=== PATIENT | female | born 2000 | race Two or more races ===

== ENCOUNTER 2023-07-25 01:15 | Inpatient (IN) ==
[2023-07-25] MEDS ORDERED: D5 1/2 NS 1,000 ML 1,000 ML IV ONE (01:31)
[2023-07-25 01:39] VITALS: BMI 28.5
[2023-07-25] MEDS ORDERED: D5 1/2 NS 1,000 ML 1,000 ML IV SCH ×2 (02:00→04:00)
[2023-07-25 02:05] LABS: BILIRUBIN,URINE NEGATIVE (NEGATIVE); BLOOD/HEMOGLOBIN,URINE NEGATIVE (NEGATIVE); GLUCOSE, URINE NEGATIVE (NEGATIVE); KETONES,URINE NEGATIVE (NEGATIVE); LEUKOCYTE ESTERASE ,URINE 1+ (NEGATIVE); NITRITES,URINE NEGATIVE (NEGATIVE); PROTEIN,URINE NEGATIVE (NEGATIVE); UROBILINOGEN,URINE NORMAL (NORMAL)
[2023-07-25 02:12] LABS: APPEARANCE,URINE CLEAR (CLEAR); COLOR,URINE STRAW (YELLOW)
[2023-07-25 02:13] LABS: BACTERIA,URINE TRACE /HPF (NEGATIVE); RBC,URINE 0-2 /HPF (0-3); SQUAMOUS EPITHELIAL CELL,UR RARE /HPF (NEGATIVE)
[2023-07-25 02:16] LABS: BASOPHILS % (AUTO) 0.5 % (0.2-1.0); EOSINOPHILS # (AUTO) 0.1 x10^3/uL (0.0-0.2); EOSINOPHILS % (AUTO) 0.9 % (0.9-2.9); HEMATOCRIT 36.7 % (36.0-47.0); HEMOGLOBIN 12.2 g/dL (12.0-16.0); LYMPHOCYTES # (AUTO) 2.8 X10^3/uL (1.3-2.9); MEAN CORPUSCULAR HEMOGLOBIN 27.4 pg (27.0-34.0); MEAN CORPUSCULAR HGB CONC 33.3 g/dL (33.0-35.0); MEAN CORPUSCULAR VOLUME 82.1 fL (80.0-100.0); MEAN PLATELET VOLUME 11.6 fL (7.4-11.0); MONOCYTES # (AUTO) 0.4 x10^3/uL (0.3-0.8); MONOCYTES % (AUTO) 5.2 % (0.0-13.0); NEUTROPHILS # (AUTO) 4.3 x10^3/uL (2.2-4.8); NEUTROPHILS % (AUTO) 56.4 % (42.0-75.0); PLATELET COUNT 131 X10^3/uL (150.0-450.0); RED BLOOD COUNT 4.47 X10^6/uL (3.5-5.4); RED CELL DISTRIBUTION WIDTH 17.9 % (11.6-16.5); WHITE BLOOD COUNT 7.6 X10^3/uL (3.6-10.0)
[2023-07-25 02:19] LABS: ALANINE AMINOTRANSFERASE 9 Units/L (12-78); ALBUMIN 2.9 g/dL (3.4-5.0); ALKALINE PHOSPHATASE 387 Units/L (46-116); ASPARTATE AMINO TRANSFERASE 19 Units/L (15-37); BLOOD UREA NITROGEN 10 mg/dL (7-18); CALCIUM 8.6 mg/dL (8.5-10.1); CARBON DIOXIDE 23.2 mmol/L (21-32); CHLORIDE 103 mmol/L (98-107); COR CA(FOR HYPOALB) 9.5 mg/dL (8.5-10.1); CREATININE 0.62 mg/dL (0.55-1.02); GLUCOSE 106 mg/dL (65-99); POTASSIUM 3.9 mmol/L (3.5-5.1); SODIUM 136 mmol/L (136-145); TOTAL PROTEIN 7.4 g/dL (6.4-8.2); eGFR NON BLACK RACES > 60 (>60)
[2023-07-25 02:30] LABS: AMNISURE ROM TEST NO MEMBRANES RUPTURE (NO RUPTURE)
[2023-07-25] MEDS ORDERED: PITOCIN IVP ONE (03:13)
[2023-07-25] MEDS ORDERED: D5 LR + PITOCIN 10 UNITS/L 10 UNITS/1,000 ML BAG IV PRN (03:13)
[2023-07-25] MEDS ORDERED: MORPHINE SULFATE INJ 4 MG IVP PRN (03:13)
[2023-07-25] MEDS ORDERED: AMPICILLIN VIAL 2 GRAM 2 G in NS 100 ML IV + SPIKE MINIBAG* 100 ML IV SCH (04:00)
[2023-07-25] MEDS ORDERED: BETADINE SOLN ONE (04:25)
[2023-07-25] MEDS ORDERED: PITOCIN ONE (04:25)
[2023-07-25] MEDS ORDERED: D5 1/2 NS 1,000 mL + PITOCIN 20 UNITS/L IV 20 UNITS/1,000 ML BAG IV ONE (04:28)
[2023-07-25] MEDS ORDERED: AMPICILLIN VIAL 2 GRAM ONE (04:34)
[2023-07-25] MEDS ORDERED: NS 100 ML IV 100 ML ONE ×3 (04:35→12:22)
[2023-07-25] MEDS ORDERED: LR 1,000 ML IV 1,000 ML IV ONE (06:08)
[2023-07-25] MEDS ORDERED: FENTANYL VIAL INJ 100 mcg ONE (06:29)
[2023-07-25] MEDS ORDERED: NAROPIN EPIDURAL 0.2% 100 ML ONE (06:29)
[2023-07-25] MEDS ORDERED: AMPICILLIN VIAL 1 GRAM 1 G in NS 50 ML IV 50 ML IV SCH (08:00)
[2023-07-25] MEDS ORDERED: AMPICILLIN VIAL 1 GRAM 1 G in NS 50 ML IV + SPIKE MINIBAG* 50 ML IV SCH (08:00)
[2023-07-25] MEDS ORDERED: AMPICILLIN VIAL 1 GRAM ONE ×2 (08:29→12:22)
[2023-07-25] MEDS ORDERED: MARCAINE 0.25% INJ ONE (10:25)
[2023-07-25] MEDS ORDERED: DERMOPLAST PAIN RELIEF SPRAY TOP PRN (15:46)
[2023-07-25] MEDS ORDERED: AMBIEN PO PRN (15:46)
[2023-07-25] MEDS ORDERED: ADACEL or BOOSTRIX TDaP VACCINE IM ONE (15:46)
[2023-07-25] MEDS ORDERED: MOTRIN TAB 800 MG PO PRN (15:46)
[2023-07-25] MEDS ORDERED: MILK OF MAGNESIA PO PRN (15:46)
[2023-07-25] MEDS ORDERED: D5 1/2 NS 1,000 ML 1,000 ML with PITOCIN 20 UNITS IV SCH ×2 (17:00)
[2023-07-26 05:00] LABS: HEMATOCRIT 30.5 % (36.0-47.0)
[2023-07-26 08:03] VITALS: RESP 20
[2023-07-26] MEDS ORDERED: ADACEL or BOOSTRIX TDaP VACCINE IM ONE (08:23)
[2023-07-26] MEDS ORDERED: PRENATAL PLUS PO SCH (09:00)
[2023-07-26 15:48] VITALS: BP 101/58; PULSE 62; TEMP 98.4; O2SAT 98
== END 2023-07-26 17:10 | disposition home or self-care (01) | DRG 807 ==
LOC: ER 01:21 → LD 02:50 → MED/SURG 15:58
PROVIDERS: ADMIT Obstetrics & Gynecology Obstetrics; ATTEND Obstetrics & Gynecology Obstetrics
DX: O24.419 Gestational diabetes mellitus in pregnancy, unspecified control; Z37.0 Single live birth; Z3A.40 40 weeks gestation of pregnancy